=== PATIENT | male | born 1960 | race Caucasian/White ===

== ENCOUNTER 2019-03-09 08:18 | Day surgery (SDC) | payer OTHER ==
[~2019-03-09 08:18] MED LIST: PROPOFOL INJ 200 MG/20 ML VIAL IV ONE
[2019-03-09 10:50] VITALS: BP 117/73
--- NOTE | 2019-03-09 12:40 | Operative Report ---
Operative Report DATE OF SURGERY: 03/09/19 Operative Report: The risk, benefits and alternatives of the procedure including risks of bleeding, perforation requiring surgery have been explained to the patient in detail and informed consent has been obtained. Patient is placed in a left, lateral decubital position. Timeout was called. Propofol medication is administered. Rectal examination is done which did not reveal any masses, tears or fissures. Cecum. The cecum was identified by the usual anatomical landmarks including the ileocecal valve as well as the appendiceal office. Photodocumentation is obtained. Scope was then sequentially pulled back via the various segments of the colon including the ascending colon, hepatic flexure, transverse colon, splenic flexure, descending colon and finally into the rectosigmoid portions of the colon. Retroflexion maneuvers performed. PREOPERATIVE DIAGNOSIS: Colorectal cancer screening POSTOPERATIVE DIAGNOSIS: Mild nonspecific inflammation noted on the right-hand side of the colon status post biopsy. Diverticulosis without any evidence of diverticulitis. Internal hemorrhoids OPERATION: Colonoscopy with biopsy SURGEON: MARCELA BOURGEOIS ANESTHESIA: LMAC TISSUE REMOVED OR ALTERED: As noted above. COMPLICATIONS: None. ESTIMATED BLOOD LOSS: None. INTRAOPERATIVE FINDINGS: As noted above. PROCEDURE: Patient tolerated the procedure well. No immediate postprocedure complications are noted. Patient is discharged in good condition. Discharge date 03/09/2019. Discharge diet: Regular. Discharge activity: Regular. 2 to 3-week follow-up to discuss findings. Patient is instructed to call the office or proceed to the emergency room should there be any further problems questions. If biopsies are negative can consider 10-year surveillance colonoscopy.
== END 2019-03-09 10:48 | disposition home or self-care (01) ==
LOC: END 08:18
PROVIDERS: ATTEND Internal Medicine Gastroenterology
DX: Z12.11 Encounter for screening for malignant neoplasm of colon (principal); K57.30 Diverticulosis of large intestine without perforation or abscess without bleeding; K64.8 Other hemorrhoids; K52.9 Noninfective gastroenteritis and colitis, unspecified
CPT/HCPCS: 45380; 88305 ×2; 00812; J2704; 812